=== PATIENT | female | born 1940 | race Caucasian/White ===

== ENCOUNTER → 2020-09-29 | Outpatient (CLI) | payer OTHER ==
[~2020-09-29] MED LIST: ASPIRIN EC325 M1 PO; CALCIUM 600 +1 EAC1 PO; CARVEDILOL6.25 MG PO; COZAAR100 MG PO; GLUCOPHAGE1000 MG PO; HUMALOG100 UNIT/1 SQ; HYDROCODON-ACE1 EAC7 PO; HYDROXYCHLOROQ200 M1 PO; LANTUS SQ; LEVOTHROID25 MCG PO; MEGA RED PO; PREDNISONE 2.52.5 M1 PO; PREDNISONE PO; THERA-M CAPLET1 EACH PO; VITAMIN D-32000 UNIT PO; ZOCOR 20 MG TAB20 M1 PO
== END ==
LOC: SJCVC 13:59
PROVIDERS: ATTEND Internal Medicine Cardiovascular Disease
DX: R94.31 Abnormal electrocardiogram [ECG] [EKG] (principal); I77.9 Disorder of arteries and arterioles, unspecified; I10 Essential (primary) hypertension; E78.00 Pure hypercholesterolemia, unspecified; I77.1 Stricture of artery; I25.10 Atherosclerotic heart disease of native coronary artery without angina pectoris; I73.9 Peripheral vascular disease, unspecified; E11.9 Type 2 diabetes mellitus without complications; E03.9 Hypothyroidism, unspecified; M81.0 Age-related osteoporosis without current pathological fracture; Z79.4 Long term (current) use of insulin; Z87.891 Personal history of nicotine dependence; Z72.89 Other problems related to lifestyle; Z79.899 Other long term (current) drug therapy; Z79.82 Long term (current) use of aspirin

== ENCOUNTER → 2021-02-19 | Outpatient (CLI) | payer OTHER ==
[~2021-02-19] MED LIST changes: -CARVEDILOL6.25 MG PO; +COREG12.5 MG PO; +LEVEMIR FL100 UNIT/2 SUBQ; +NOVOLIN 70100 UNIT/3 SUBQ
== END ==
LOC: SJCVCIMAG 08:35
PROVIDERS: ATTEND Internal Medicine Cardiovascular Disease
DX: I65.23 Occlusion and stenosis of bilateral carotid arteries (principal); R06.00 Dyspnea, unspecified; I25.10 Atherosclerotic heart disease of native coronary artery without angina pectoris; I25.89 Other forms of chronic ischemic heart disease; I73.9 Peripheral vascular disease, unspecified; E11.9 Type 2 diabetes mellitus without complications; E78.5 Hyperlipidemia, unspecified; E03.9 Hypothyroidism, unspecified; I12.9 Hypertensive chronic kidney disease with stage 1 through stage 4 chronic kidney disease, or unspecified chronic kidney disease; N18.9 Chronic kidney disease, unspecified; E11.22 Type 2 diabetes mellitus with diabetic chronic kidney disease; Z82.49 Family history of ischemic heart disease and other diseases of the circulatory system; Z87.891 Personal history of nicotine dependence; Z72.89 Other problems related to lifestyle; Z79.82 Long term (current) use of aspirin; Z79.4 Long term (current) use of insulin; Z79.899 Other long term (current) drug therapy

== ENCOUNTER 2021-02-24 06:34 | Observation (INO) | payer OTHER ==
[~2021-02-24] VITALS: Ht 154.9 cm; Wt 81.6 kg
[~2021-02-24 06:34] MED LIST changes: -LEVEMIR FL100 UNIT/2 SUBQ; -NOVOLIN 70100 UNIT/3 SUBQ
[2021-02-24 07:50] VITALS: BP 175/88
[2021-02-24 08:11] LABS: HEMATOCRIT 44.5 % (37.0-47.0); HEMOGLOBIN 14.1 gm/dL (12.0-15.0); MCH 27.8 pg (26.0-34.0); MCHC 31.8 g/dL (28.0-37.0); MCV 87.4 fL (80.0-100.0); RBC 5.09 mil/uL (4.20-5.00); RDW 14.9 % (10.5-14.5); WBC 10.9 thou/uL (4.0-11.0)
[2021-02-24] MEDS ORDERED: LEVEMIR FL100 UNIT/2 SUBQ (08:18)
[2021-02-24] MEDS ORDERED: NOVOLIN 70100 UNIT/3 SUBQ (08:20)
[2021-02-24 08:23] LABS: CALCIUM 9.1 mg/dL (8.5-10.1); CREATININE 0.7 mg/dL (0.6-1.0); POTASSIUM 3.7 mmol/L (3.5-5.1)
--- NOTE | 2021-02-24 08:59 | EKG ---
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1940 Requested By: Peter Quevedo Order Number: [id number] MD: Paxton Maurer Measurements Intervals [place] Rate: 93 P: 64 LA: 168 QRS: -10 QRSD: 81 T: 121 QT: 356 QTc: 443 Interpretive Statements Sinus rhythm Probable left atrial enlargement Probable anterior infarct, age indeterminate Compared to ECG 07/08/2011 08:05:41 Myocardial infarct finding now present Electronically Signed On 02-24-2021 8:58:55 [employer]OUNT[employer] BR[employer] ASSEMBLER by Paxton Maurer [email or web address] <ELECTRONICALLY SIGNED> By: Paxton Maurer MD, [facility] 02/24/21 0858 5 5 Paxton Maurer MD, [facility] /EPI
[2021-02-24 16:44] VITALS: BP 140/54
--- NOTE | 2021-02-24 19:27 | NUR ---
PT ARRIVED FROM PREKINDERGARTEN TEACHER AT APPROXIMATELY 16:30. PREKINDERGARTEN TEACHER STATED AFTER THE PROCEDURE THERE WAS BLEEDING FROM THE RIGHT GROIN SITE, THAT WAS SUCCESFULLY STOPPED AND REDRESSED. THERE IS BRUSING AT THAT SITE THAT WAS MARKED BY THE PREKINDERGARTEN TEACHER. GROIN SITE IS C/D/I, NO ADDITIONAL CONCERNS. PT DENIES ANY PAIN AT THE SITE UNLESS IT IS BEING ASSESSED. PT DENIES N/V, SOA, OR ANY OTHER COMPLIANTS. DUE TO THE BLEEDING THE BED REST WAS EXTENDED. BRANNON WAS PLACED IN THE PREKINDERGARTEN TEACHER UNTIL BEDREST IS COMPLETED.
[2021-02-24 20:25] VITALS: BP 148/59
[2021-02-24 23:34] VITALS: BP 130/69
[2021-02-25 01:33] VITALS: BP 100/69
[2021-02-25 03:00] LABS: ALBUMIN 2.8 g/dL (3.4-5.0); CALCIUM 8.5 mg/dL (8.5-10.1); CREATININE 0.6 mg/dL (0.6-1.0); POTASSIUM 3.9 mmol/L (3.5-5.1); TOTAL BILIRUBIN 0.5 mg/dL (0.2-1.0); TOTAL PROTEIN 6.1 g/dL (6.4-8.2)
[2021-02-25 03:19] LABS: HEMATOCRIT 40.1 % (37.0-47.0); MCH 28.3 pg (26.0-34.0); MCHC 32.3 g/dL (28.0-37.0); MCV 87.6 fL (80.0-100.0); RBC 4.58 mil/uL (4.20-5.00); RDW 14.9 % (10.5-14.5); WBC 10.5 thou/uL (4.0-11.0)
[2021-02-25 03:30] VITALS: BP 131/65
--- NOTE | 2021-02-25 06:00 | NUR ---
ASSUMED PATIENT CARE AT 1845. VITAL SIGNS STABLE WITH PATIENT COMPLAINING OF MINIMAL CHRONIC PAIN IN BACK. UPON INITIAL ASSESSMENT PATIENT HAD LARGE BRUISE AND EDEMATOUS RIGHT GROIN CATHETER SITE. PATIENT WAS KEPT IN BED THROUGHOUT SHIFT A PRECAUTION. [facility] CALLED TO CARDIOLOGY WITH NURSE INSTRUCTED TO "WATCH FOR NOW". PATIENT HAS EXPRESSED NO PAIN NOR PRESSURE IN CHEST, JAW OR ARM. PEDAL PULSES PRESENT BILATERALLY WITH PATIENT HAVING NO COMPLAINTS OF NUMBNESS OR TINGLING. NURSE TO GIVE DETAILED REPORT TO ONCOMING SHIFT. CONTINUE PLAN OF CARE.
[2021-02-25 06:20] VITALS: BP 116/72
[2021-02-25] MEDS ORDERED: LIPITOR40 MG PO (08:18)
[2021-02-25] MEDS ORDERED: PLAVIX 75 MG TA75 MG PO (08:18)
[2021-02-25 08:20] VITALS: BP 138/72
--- NOTE | 2021-02-25 08:55 | EKG ---
[address] [place] [address] ELECTROCARDIOGRAM REPORT Name: TYLOR FOY Room #: 218-P 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 : 1940 Requested By: Stephanie Duran Order Number: [id number] MD: Paxton Maurer Measurements Intervals [place] Rate: 94 P: 56 SC: 176 QRS: 16 QRSD: 87 T: 162 QT: 391 QTc: 490 Interpretive Statements Sinus rhythm Left atrial enlargement Abnrm T, probable ischemia, anterolateral lds Compared to ECG 02/24/2021 07:26:19 ST and T wave abnormality is more pronounced QT interval has lengthened Electronically Signed On 02-25-2021 8:55:17 WOMEN'S SWIM COACH by Paxton Maurer [email or web address] <ELECTRONICALLY SIGNED> By: Paxton Maurer MD, [facility] 02/25/21 0855 4 Paxton Maurer MD, [facility] /EPI
[2021-02-25 12:12] VITALS: BP 133/29
[2021-02-25 14:25] VITALS: BP 133/29
--- NOTE | 2021-02-25 15:06 | NUR ---
ASSESSMENT CHARTED - MEDS PER [facility] DIET AND FLUIDS. NO CO'S OF PAIN OR NAUSEA. US OF GROIN R NEGATIVE - PT AMBULATED WITH CARDIAC REHAB AND ALSO NURSING PRIOR TO D/C. INSTRUCTION RE HOME MEDS/ CARE AND FLOOW UP GIVEN TO PATIENT AND SON - STATED UNDERSTANDING OF INSTRUCTION GIVEN. LET UNIT VIA WHEELCHAIR - HOME VIA PVT VEHICLE ACCOMPANIED BY SON - NO CO' S AT TIME OF D/C.
--- NOTE | 2021-03-01 16:50 | CATHLAB ---
[facility] [place] [address] INVASIVE PROCEDURE REPORT Name: TYLOR FOY Room #: 218-P [facility] [place] Dove#: [id number] Admission: 02/24/21 Attend Phys: Peter Quevedo MD, Discharge: 02/25/21 Date of : 42 Report #: [id number] THIS REPORT FOR: cc: MARK CHATTERJEE FAMILY PHYSICIAN or PCP Peter Quevedo MD [facility] ~ APPROVED REPORT Study performed: 02/24/2021 09:00:11 Patient Details Patient Status: Out-Patient Room #: The patient is a 80 year-old female Event Personnel Peter Quevedo Smokehouse Worker, Juan José Robleod RN RN, Annita Coronado RTR Danuta Mendosa Ja'net RTR Monitor, Tammy Camp RTR Clinical Data Research Procedures Performed Left Heart Cath w/or w/o Coronaries [id number] [facility] Art Access - R femoral artery* ISABELLA Place w/wo Plasty Single LAD 156275 Aortogram Abdominal Peripheral Angio 969187 16694 Initial Mod Sed Same Phys/QHP Gr5y 325912 79047 Mod Sed Same Phys/QHP Ea 250974 Indication Chest pain Procedure Narrative The patient was brought electively to the Cardiac Catheterization Laboratory and was prepped and draped in a sterile manner. The Right Groin^ was infiltrated with 1% Lidocaine subcutaneous anesthesia. A PINNACLE 6FR Sheath #[id number] sheath was inserted into the RFA^. Coronary angiography was performed using coronary diagnostic catheters. The right coronary system was accessed and visualized with a JR4 catheter. The left coronary system was accessed and visualized with a JL4 catheter. The left ventricle was accessed and visualized with a PIGTAIL catheter. An aortogram of the abdominal aorta was performed. Closure device was deployed with a Fr MYNX CONTROL 6F/7F L#[id number]. The patient tolerated the procedure well and there were no complications associated with the procedure. There was no hematoma. This was a combo case with Dr Gaviria. Dr Gaviria used 5.7 mins of Fluoro. The mGycm2's were 82729.90, mGy was 2180 and [facility] [address] [place] [address] INVASIVE PROCEDURE REPORT Name: TYLOR FOY Room #: 218-P [facility] [place] ..#: [id number] Admission: 02/24/21 Attend Phys: Peter Quevedo, Discharge: 02/25/21 Date of : 42 Report #: [id number] Intraoperative Conscious Sedation Sedation start time: 9:52 Case end Time: 11:49 Fentanyl 100 mcg Versed 2.5 mg Fluoro Time: 16.10 minutes Dose: DAP 24150.60 cGycm2 4743 mGy Contrast Type and Amount: Omnipaque 195 ml Hemodynamics The aortic pressure is 138/68 mmHg with a mean of 67 mmHg. The left ventricular pressure is 149/4 mmHg with a mean of mmHg. The left ventricular end diastolic pressure is 26 mmHg. PCI Technique Lesion Percutaneous coronary intervention was performed on the proximal left anterior descending artery segment. A LAUNCHER 6FR EBU 3.5 #[id number] Guide Catheter was used to engage the LAD ostium. A Luge Wire .014 x 182CM #[id number] Interventional Guidewire was used to cross the lesion. BALLOON DILATION A Balloon catheter TREK OTW 2.25 X 12 #[id number] was inserted and inflated up to 16.00atm for 27seconds. Additional Inflation: 16.00atm for 15seconds. STENT DEPLOYMENT A stent RESOLUTE EAMON OTW 2.5 X 8 #[id number] was inserted and inflated up to 8.00atm for 15seconds. Additional Inflation: 14.00atm for 22seconds. POST STENT DEPLOYMENT BALLOON DILATION A Balloon catheter TREK NC OTW 2.5 X 8 L#[id number] was inserted and inflated up to 20.00atm for 19seconds. Additional Inflation: 20.00atm for 22seconds. PCI Technique Lesion 2 Percutaneous Coronary Intervention was performed on the Common iliac. Conclusion #1 Successful PTCA stent of a high-grade ostial LAD lesion placement of a 2.5 x 8 resolute Eamon with some telescoping to a previously placed stent. Postdilated high-pressure balloon to 2.6 mm EVELYN grade III flow. Moderate disease and calcification in this LAD system. [address] [address] INVASIVE PROCEDURE REPORT Name: TOLUHALERICTYLOR Room #: 218-P [facility] M.R.#: [id number] Admission: 02/24/21 Attend Phys: Peter Quevedo, Discharge: 02/25/21 Date of : 42 Report #: [id number] #2 left main with distal tapered narrowing mild disease giving rise to LAD and circumflex. #3 the circumflex is mildly diseased with proximal calcification is nondominant but moderate distribution of a large OM branch 5060% mid vessel lesion. #4 dominant right coronary with mild to moderate disease 56% distal narrowing giving rise to PDA URIEL which are moderately diseased. 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 We will have interventional radiology address this. Recommendations and plan: Continue aggressive risk factor modification. Dual antiplatelet therapy has been initiated. Patient will transfer to CCU to follow post coronary stent protocol. <ELECTRONICALLY SIGNED> By: Peter Quevedo MD, FACC 03/01/211649 49 49 Peter Quevedo MD, FACC /INF
== END 2021-02-25 14:48 | disposition home or self-care (01) ==
LOC: CATH 06:34 → 2N 16:50 → CATH 16:51 → 2N 02-25 14:48
PROVIDERS: Nurse Practitioner Adult Health; ADMIT Internal Medicine Cardiovascular Disease; ATTEND Internal Medicine Cardiovascular Disease
DX: I25.10 Atherosclerotic heart disease of native coronary artery without angina pectoris (principal); I70.201 Unspecified atherosclerosis of native arteries of extremities, right leg; I10 Essential (primary) hypertension; E78.5 Hyperlipidemia, unspecified; E11.9 Type 2 diabetes mellitus without complications; I65.29 Occlusion and stenosis of unspecified carotid artery; Z23 Encounter for immunization; Z79.4 Long term (current) use of insulin; Z79.899 Other long term (current) drug therapy